=== PATIENT | male | born 1995 | race Caucasian/White ===

== ENCOUNTER 2017-05-28 00:33 | Emergency (ER) | payer BC ==
[2017-05-28] MEDS ORDERED: NS 1,000 ML IV ONE ×2 (00:35)
[2017-05-28] MEDS ORDERED: ONDANSETRON 4 MG/2 ML VIAL IVP ONE (00:35)
--- NOTE | 2017-05-28 00:37 | EDPHY ---
H & P HPI/ROS: HPI CHIEF COMPLAINT: Alcohol Intoxication HISTORY OF PRESENT ILLNESS: This patient is a 21-year-old male, unknown medical history he presents emergency room highly intoxicated alcohol by EMS. 911 was called to a local [employer] by friends there and states that he has been drinking since around 5 o'clock this evening for his friends 22st birthday alliance party. According to friends in EMS he had multiple shots of liquor throughout the evening. He now presents emergency room highly intoxicated alcohol. He only responds to painful stimuli. Past Medical History: Unknown medical history Past Surgical History: Unknown surgical history Social History: Large amount of alcohol this evening. Family History: Unknown ROS REVIEW OF SYSTEMS: A comprehensive 10 point review of systems is otherwise negative aside from elements mentioned in the history of present illness. Exam Constitutional Intoxicated, triage nursing summary reviewed, vital signs reviewed, Sleepy, smells of alcohol Eyes normal conjunctivae and sclera, horizontal beating nystagmus consistent acute alcohol intoxication, otherwise pupils equal and react to light HENT normal inspection, atraumatic, moist mucus membranes, no epistaxis, neck supple/ no meningismus, no raccoon eyes. Respiratory clear to auscultation bilaterally, normal breath sounds, no respiratory distress, no wheezing. Cardiovascular rate normal, regular rhythm, no murmur, no edema, distal pulses normal. Gastrointestinal soft, non-tender, no rebound, no guarding, normal bowel sounds, no distension, no pulsatile mass. Genitourinary no CVA tenderness. Musculoskeletal no midline vertebral tenderness, full range of motion, no calf swelling, no tenderness of extremities, no meningismus, good pulses, neurovascularly intact. Skin pink, warm, & dry, no rash, skin atraumatic. Neurologic sleepy, intoxicated with alcohol,, alert and oriented x 3, AAOx3, moves all 4 extremities equally, motor intact, sensory intact, CN II-XII intact , , normal vision, normal speech. Psychiatric normal mood/affect. Heme/Lymph/Immune no lymphadenopathy. Differential Diagnosis: Includes but is not limited to in a particular order acute alcohol intoxication, alcohol abuse, dehydration, electrolyte abnormality , nausea vomiting from acute alcohol intoxication Medical Decision Making: Plan for this patient IV establishment with IV fluid bolus 4 mg IV Zofran nausea, check serum alcohol level check electrolytes. Monitor for worsening of condition. Monitor for sobriety. Re-evaluate. Re-evaluation: 0122AM: Alcohol level [phone]: Patient up ambulatory to the bathroom with a steady gait. I have answered all his questions. He answers my questions appropriately. He has no complaints. He admits to drinking too much alcohol last night. Source: Patient, EMS Exam Limitations: Intoxication Constitutional: Initial Vital Signs Temperature (C) 36.7 C 05/28/17 00:36 Heart Rate 67 05/28/17 00:36 Respiratory Rate 16 05/28/17 00:36 Blood Pressure 124/81 H 05/28/17 00:36 O2 Sat (%) 96 05/28/17 00:36 O2 Delivery Mode Room Air O2 (L/minute) 2 Allergies/Adverse Reactions: Unable to Assess Allergy (Unverified 05/28/17 00:36) Home Medications: Medication Instructions Recorded Unobtainable 05/28/17 Medical Decision Making - Data Points Laboratory Results: Laboratory Results 05/28/17 00:40 05/28/17 00:40 05/28/17 05/28/17 00:40 00:40 WBC 6.94 10^3/uL 10^3/uL (3.80-9.50) RBC 5.52 10^6/uL 10^6/uL (4.40-6.38) Hgb 15.8 g/dL g/dL (13.7-17.5) Hct 47.0 % % (40.0-51.0) MCV 85.1 fL fL (81.5-99.8) MCH 28.6 pg pg (27.9-34.1) MCHC 33.6 g/dL g/dL (32.4-36.7) RDW 13.2 % % (11.5-15.2) Plt Count 236 10^3/uL 10^3/uL (150-400) MPV 10.2 fL fL (8.7-11.7) Neut % (Auto) 44.6 % % (39.3-74.2) Lymph % (Auto) 49.1 % H % (15.0-45.0) [place] % (Auto) 3.7 % L % (4.5-13.0) Eos % (Auto) 1.7 % % (0.6-7.6) Baso % (Auto) 0.6 % % (0.3-1.7) Nucleat RBC Rel Count 0.0 % % (0.0-0.2) Absolute Neuts (auto) 3.09 10^3/uL 10^3/uL (1.70-6.50) Absolute Lymphs (auto) 3.41 10^3/uL H 10^3/uL (1.00-3.00) Absolute Monos (auto) 0.26 10^3/uL L 10^3/uL (0.30-0.80) Absolute Eos (auto) 0.12 10^3/uL 10^3/uL (0.03-0.40) Absolute Basos (auto) 0.04 10^3/uL 10^3/uL (0.02-0.10) Absolute Nucleated RBC 0.00 10^3/uL 10^3/uL (0-0.01) Immature Gran % 0.3 % % (0.0-1.1) Immature Gran # 0.02 10^3/uL 10^3/uL (0.00-0.10) Sodium 154 mEq/L H mEq/L (135-145) Potassium 4.1 mEq/L mEq/L (3.5-5.2) Chloride 111 mEq/L H mEq/L (97-110) Carbon Dioxide 22 mEq/l mEq/l (22-31) Anion Gap 21 mEq/L H mEq/L (8-16) BUN 18 mg/dL mg/dL (7-23) Creatinine 1.1 mg/dL mg/dL (0.7-1.3) Estimated GFR > 60 Glucose 101 mg/dL H mg/dL (70-100) Calcium 9.3 mg/dL mg/dL (8.5-10.4) Ethyl Alcohol 327 mg/dL H mg/dL (0-10) Medications Given: Discontinued Medications Sodium Chloride (Ns) 1,000 mls @ 0 mls/hr IV EDNOW ONE; Wide Open PRN Reason: Protocol Stop: 05/28/17 00:36 Last Admin: 05/28/17 00:43 Dose: 1,000 mls Sodium Chloride (Ns) 1,000 mls @ 0 mls/hr IV EDNOW ONE; Wide Open PRN Reason: Protocol Stop: 05/28/17 00:36 Last Admin: 02/03/18 00:43 Dose: 1,000 mls Ondansetron HCl (Zofran) 4 mg IVP EDNOW ONE Stop: 05/28/17 00:36 Last Admin: 05/28/17 00:41 Dose: 4 mg Departure - Departure Disposition: Home, Routine, Self-Care Clinical Impression: Alcoholic intoxication Qualifiers: Complication of substance-induced condition: uncomplicated Qualified Code(s): F10.920 - Alcohol use, unspecified with intoxication, uncomplicated Condition: Good Instructions: Alcohol Intoxication (ED), Abuse of Alcohol (ED) Referrals: Patient,NotPresent [Primary Care Provider] - As per Instructions
[2017-05-28 01:02] LABS: PLATELET COUNT 236 10^3/uL (150-400)
[2017-05-28 06:17] VITALS: RESP 16
[2017-05-28 07:08] VITALS: BP 132/74; PULSE 85; TEMP 98.2; O2SAT 95
== END 2017-05-28 07:08 | disposition home or self-care (01) ==
LOC: EDBD 00:33
PROC: 3E0337Z Introduction of Electrolytic and Water Balance Substance into Peripheral Vein, Percutaneous Approach (ICD-10-PCS; principal; 2017-05-28)
DX: F10.920 Alcohol use, unspecified with intoxication, uncomplicated (principal); E86.9 Volume depletion, unspecified
CPT/HCPCS: 96374; G0480; J2405